=== PATIENT | male | born 1970 | race African-American/Black ===

== ENCOUNTER 2021-06-27 19:32 | Emergency (ER) | payer OTHER, BC ==
[2021-06-27] MEDS ORDERED: Acetaminophen/oxyCODONE 325-5 MG Tab PO ONE (20:03)
--- NOTE | 2021-06-27 20:10 | EDM.PDOC ---
ED HPI GENERAL MEDICAL PROBLEM - General Chief Complaint: Upper Extremity Injury/Pain Stated Complaint: POSSIBLE BABB BITE ON HAND Time Seen by Provider: 06/27/21 19:36 Source of Information: Reports: Patient History Limitations: Reports: No Limitations - History of Present Illness INITIAL COMMENTS - FREE TEXT/NARRATIVE: HISTORY AND PHYSICAL: History of present illness: Patient is a 51-year-old male who presents to the emergency room with complaints of frostbite to bilateral hands/distal fingertips. He states initial injury happened 1 week ago and has been repeating lately going outside due to his job. Initially he had pain to the distal tips of his fingers and feels the pain is not improving, worse today. Patient denies any fever, chills, headache, change in vision, syncope or near syncope. Denies any chest pain, back pain, shortness of breath or cough. Denies any abdominal pain, nausea, vomiting, diarrhea, constipation or dysuria. Has not noted any blood in urine or stool. Patient has been eating and drinking appropriately. No recent travel or sick contacts. Review of systems: As per history of present illness and below otherwise all systems reviewed and negative. Past medical history: As per history of present illness and as reviewed below otherwise noncontributory. Surgical history: As per history of present illness and as reviewed below otherwise noncontributory. Social history: See social history for further information Family history: As per history of present illness and as reviewed below otherwise noncontributory. Physical exam: General: Well developed and well nourished. Alert and orientated x 3. Nontoxic in appearance and in no acute distress. Vital signs are stable and have been reviewed by me. Nursing notes were reviewed. HEENT: Atraumatic, normocephalic, pupils equal and reactive bilaterally, negative for conjunctival pallor or scleral icterus, mucous membranes moist, trachea midline. No drooling or trismus noted. No meningeal signs. No hot potato voice noted. Lungs: Clear to auscultation bilaterally. No wheezes, rales, or rhonchi. Chest nontender. Normal work of breathing, no accessory muscles used. Heart: S1S2, regular rate and rhythm without overt murmur, gallops, or rubs. No JVD. No peripheral edema Abdomen: Soft, nondistended, nontender. Skin: Nailbed intact. No blistering. Pale discoloration to left 2nd, 3rd and 4th finger tips (blanchable). Mild swelling to the distal tips of fingers on left hand. Cap refill less than 3 seconds. Remaining skin is intact, warm, dry. No lesions or rashes noted. Hematologic: No petechiae or purpra. Mucosa appropriate color and normal nail bed color and refill. Extremities: Atraumatic, tenderness to distal tips of all finger tips bilaterally. Nailbed intact. No blistering. He moves all extremities per self without difficulty or deficits, cap refill less than 3 seconds. Neurovascular unremarkable. Neuro: Awake, alert, oriented. Cranial nerves II through XII unremarkable. Cerebellum unremarkable. Motor and sensory unremarkable throughout. Exam nonfocal. Psychiatric: Mood and affect are appropriate. Normal thought process. Answering questions appropriately. Please note that the patient was seen and evaluated during the 2019 SARS-CoV-2 novel coronavirus pandemic period. Community viral transmission is ongoing at time of this encounter and the emergency department is operating under pandemic response procedures. Medical Decision Making: Patient has tenderness and pain to all 10 tips of his fingers. He does have pale discoloration to the left second, third and fourth fingertips although has good cap refill and they are blanchable. Does have mild swelling noted to the distal tips of the left hand. I did have a lengthy discussion with patient as he states he has been continuing to go outside into the cold weather regardless of his injury due to work. He states he is unable to not reexpose himself as he needs to work. No concern for secondary infection. I have talked with the patient about today's findings, in addition to providing specific details for plan of care. Reassessment at the time of disposition demonstrates that the patient is in no acute distress. I did give him the hand surgeons phone numbers for follow-up care. The patient is stable for discharge, counseling was provided and we discussed in great detail signs and symptoms that would prompt them to return to the Emergency Department. Medication, follow up and supportive care measures were reviewed and discussed. Voices understanding and is agreeable to plan of care. Denies any further questions or concerns at this time. Diagnostics: None Therapeutics: Percocet Prescription: Percocet Impression: Babb bite Plan: 1. You were evaluated today on an emergent basis. Please take care of yourself and DO NOT re-expose yourself to extreme temperatures (can cause further injury to the healthy and damaged tissues). Wear protective winter gear. 2. You can alternate Tylenol and ibuprofen as needed for pain and fever management. 3. We encourage you to follow up with your primary care provider and/or Hand Surgeon (Dr Enciso and Dr Laughlin) at [facility] for re-evaluation and further care/management. 4. If your symptoms should worsen, new symptoms develop or any of the signs and symptoms we discussed should arise please return to the emergency room or call 911 (if needed). Definitive disposition and diagnosis as appropriate pending reevaluation and review of above. Left Finger-Index Pain Score (Numeric/FACES): 7 - Related Data Allergies Allergy/AdvReac Type Severity Reaction Status Date / Time No Known Allergies Allergy Verified 06/27/21 19:54 Home Meds: Home Meds . [No Known Home Meds] 06/27/21 [History] Social & Family History - Tobacco Use Second Hand Smoke Exposure: No - Caffeine Use Caffeine Use: Reports: None - Recreational Drug Use Recreational Drug Use: No Review of Systems - Review of Systems Review Of Systems: Comprehensive ROS is negative, except as noted in HPI. ED EXAM, GENERAL - Physical Exam Exam: See Below (See dictation) Course - Vital Signs Last Recorded V/S: Last Vital Signs Temp 98.3 F 06/27/21 19:52 Pulse 77 06/27/21 19:52 Resp 20 06/27/21 19:52 BP 159/84 H 06/27/21 19:52 Pulse Ox 98 06/27/21 19:52 - Orders/Labs/Meds Meds: Medications Discontinued Medications Generic Name Dose Route Start Last Admin Trade Name Any PRN Reason Stop Dose Admin Oxycodone/Acetaminophen 1 tab 06/27/21 20:03 Acetaminophen/Oxycodone 325-5 Mg Tab PO 06/27/21 20:04 ONETIME ONE Departure - Departure Time of Disposition: 20:10 Disposition: Home, Self-Care 01 Clinical Impression: Frostbite of hands, bilateral - Discharge Information Instructions: Frostbite, [id number] Forms: ED Department Discharge Additional Instructions: The following information is given to patients seen in the emergency department who are being discharged to home. This information is to outline your options for follow-up care. We provide all patients seen in our emergency department with a follow-up referral. The need for follow-up, as well as the timing and circumstances, are variable depending upon the specifics of your emergency department visit. If you don't have a primary care physician on staff, we will provide you with a referral. We always advise you to contact your personal physician following an emergency department visit to inform them of the circumstance of the visit and for follow-up with them and/or the need for any referrals to a consulting specialist. The emergency department will also refer you to a specialist when appropriate. This referral assures that you have the opportunity for follow-up care with a specialist. All of these measure are taken in an effort to provide you with optimal care, which includes your follow-up. Under all circumstances we always encourage you to contact your private physician who remains a resource for coordinating your care. When calling for follow-up care, please make the office aware that this follow-up is from your recent emergency room visit. If for any reason you are refused follow-up, please contact the [facility] Emergency Department at and asked to speak to the emergency department charge nurse. [facility] [address] [place] [address] [address] Thank you for choosing the [facility] emergency department in [place] for your medical needs today. It was a pleasure caring for you. Today you were seen in the emergency department for babb bite. 1. You were evaluated today on an emergent basis. Please take care of yourself and DO NOT re-expose yourself to extreme temperatures (can cause further injury to the healthy and damaged tissues). Wear protective winter gear. 2. You can alternate Tylenol and ibuprofen as needed for pain and fever management. 3. We encourage you to follow up with your primary care provider and/or Hand Surgeon (Dr Enciso and Dr Laughlin) at [facility] for re-evaluation and further care/management. 4. If your symptoms should worsen, new symptoms develop or any of the signs and symptoms we discussed should arise please return to the emergency room or call 911 (if needed). Sepsis Event Note (ED) - Evaluation Sepsis Screening Result: No Definite Risk - Focused Exam Vital Signs: Vital Signs Temp Pulse Resp BP Pulse Ox 06/27/21 19:52 98.3 F 77 20 159/84 H 98
== END 2021-06-27 20:39 | disposition home or self-care (01) ==
LOC: MW.ED 19:32
DX: T33.521A Superficial frostbite of right hand, initial encounter (principal); T33.522A Superficial frostbite of left hand, initial encounter; X31.XXXA Exposure to excessive natural cold, initial encounter
CPT/HCPCS: 99283; A9270

== ENCOUNTER 2025-04-04 16:02 | Emergency (ER) | payer BC, OTHER ==
[2025-04-04] MEDS: Amoxicillin/Clavulanate K 875-125 MG Tab PO ONE (16:22)
[2025-04-04] MEDS: Acetaminophen/HYDROcodone 325-5 MG Tab PO ONE ×2 (16:22→18:13)
[2025-04-04] MEDS: Diphtheria,Pertussis(Acell),Tetanus Vaccine 0.5 ML Syringe IM ONE (16:24)
[2025-04-04] MEDS: Ketorolac 30 MG/ML SDV IM ONE (16:24)
[2025-04-04] MEDS: Bacitracin Oint 1 GM U/D Packet TOP ONE (17:48)
== END 2025-04-04 18:26 | disposition home or self-care (01) ==
LOC: MW.ED 16:02
DX: S92.421A Displaced fracture of distal phalanx of right great toe, initial encounter for closed fracture (principal); I10 Essential (primary) hypertension; F17.200 Nicotine dependence, unspecified, uncomplicated; Z79.899 Other long term (current) drug therapy; Z23 Encounter for immunization; W20.8XXA Other cause of strike by thrown, projected or falling object, initial encounter
CPT/HCPCS: 12001; 73630; 90471; 90715; 96372; 99283; A9270; J0665; J1885